=== PATIENT | male | born 1980 | race African-American/Black ===

== ENCOUNTER 2018-11-28 18:00 | Outpatient (CLI) | payer OTHER | END 2018-11-28 18:01 | disposition home or self-care (01) | LOC: SLEEPLAB 18:00 | PROVIDERS: ATTEND Family Medicine | DX: G47.33 Obstructive sleep apnea (adult) (pediatric) (principal); E66.9 Obesity, unspecified; R53.83 Other fatigue; R09.89 Other specified symptoms and signs involving the circulatory and respiratory systems; R51 Headache; R06.83 Snoring; R35.1 Nocturia; Z68.42 Body mass index [BMI] 45.0-49.9, adult | CPT/HCPCS: 95806 ==

== ENCOUNTER 2020-01-12 11:19 | Outpatient (CLI) | payer OTHER ==
--- NOTE | 2020-01-12 11:45 | RAD ---
XR Chest Pa Lat STANDARD HISTORY: Covid 19 positive over a month ago. Other viral pneumonia COMPARISON: 11/07/2016 FINDINGS: The heart size is normal. The aorta is tortuous The lungs are well expanded without focal a reas of consolidation, pneumothorax or pleural effusions. IMPRESSION: No radiographic evidence of acute cardiopulmonary process.
== END 2020-01-12 11:20 | disposition home or self-care (01) ==
LOC: BICRAD 11:19
PROVIDERS: ATTEND Physician Assistant
DX: U07.1 COVID-19 (principal)
CPT/HCPCS: 71046

== ENCOUNTER 2022-02-23 11:29 | Outpatient (CLI) | payer BC, OTHER ==
[2022-02-23 13:02] LABS: #Basophils 0.1 10x3/uL (0.0-0.2); #Eosinphils 0.2 10x3/uL (0.0-0.5); #Monocytes 0.6 10x3/uL (0.0-1.1); #Neutrophils 3.3 10x3/uL (1.5-8.4); %Basophils 0.8 % (0.0-2.0); %Eosinophils 2.4 % (0.0-6.0); %Lymphocytes 37.5 % (18.0-47.0); %Monocytes 9.1 % (0.0-10.0); %Neutrophils 49.6 % (40.0-75.0); Hemoglobin 15.1 g/dL (13.5-17.5); Mean Corpuscular HGB CONC 32.3 g/dL (32.0-36.0); Mean Corpuscular Hemoglobin 26.9 pg (27.0-33.0); Mean Corpuscular Volume 83.1 fl (81.2-95.1); Mean Platelet Volume 10.2 fl (7.4-10.4); Platelet Count 263 10x3/uL (150-450); RBC Distribution Width 13.2 % (11.5-14.5); Red Blood Cell (RBC) Count 5.62 10x6/uL (4.32-5.72); White Blood Cell (WBC) Count 6.6 10x3/uL (3.5-10.5)
[2022-02-23 13:15] LABS: Anion Gap 14 mmol/L (10-20); BUN (Urea Nitrogen) 14 mg/dL (8.9-20.6); Calc. Creatinine Clearance 0 mL/min (70-130); Calcium 8.7 mg/dL (7.8-10.44); Carbon Dioxide 23 mmol/L (22-29); Chloride 105 mmol/L (98-107); Estimated GFR 85; Glucose 96 mg/dL (70-105); Potassium 3.9 mmol/L (3.5-5.1); Sodium 138 mmol/L (136-145)
== END 2022-02-23 11:30 | disposition home or self-care (01) ==
LOC: LABBT 11:29
PROVIDERS: ATTEND Orthopaedic Surgery
DX: Z01.818 Encounter for other preprocedural examination (principal); S43.401A Unspecified sprain of right shoulder joint, initial encounter; S46.111A Strain of muscle, fascia and tendon of long head of biceps, right arm, initial encounter; M75.101 Unspecified rotator cuff tear or rupture of right shoulder, not specified as traumatic
CPT/HCPCS: 80048; 85025; 93005; 93010

== ENCOUNTER 2022-02-26 05:37 | Day surgery (SDC) | payer OTHER ==
[2022-02-24 16:28] VITALS: BMI 50.1
[2022-02-26] MEDS ORDERED: Bupivacaine/Epinephrine 0.25% 30 ML VIAL ONE (06:24)
[2022-02-26] MEDS ORDERED: fentaNYL PF 100 MCG/2 ML SYRINGE ONE (06:35)
[2022-02-26] MEDS ORDERED: HYDROmorphone 0.5 MG/0.5 ML SYRINGE ONE ×2 (06:35)
[2022-02-26] MEDS ORDERED: Midazolam HCl 2 mg/2 ml Vial ONE (06:57)
[2022-02-26] MEDS ORDERED: CEFAZOLIN 2 GM VIAL ONE (06:59)
[2022-02-26] MEDS ORDERED: Sodium Chloride 0.9% 100 ML ONE (06:59)
[2022-02-26] MEDS ORDERED: Ropivacaine 0.5% HCl/PF (150 MG/30 ML VIAL) ONE (07:00)
[2022-02-26] MEDS ORDERED: Lidocaine 1% MPF 2 ML VIAL ONE (07:00)
[2022-02-26] MEDS ORDERED: Dexamethasone 20 MG/5 ML VIAL ONE (07:25)
[2022-02-26] MEDS ORDERED: PROPOFOL 200 MG/20 ML VIAL ONE (07:25)
[2022-02-26] MEDS ORDERED: Rocuronium Bromide 10 MG/ML (10ML VIAL) ONE (07:25)
[2022-02-26] MEDS ORDERED: Phenylephrine 10 MG/ML VIAL ONE (07:40)
[2022-02-26] MEDS ORDERED: HYDROcodone/Acetaminophen 5/325 mg Tablet PO PRN (08:30)
[2022-02-26] MEDS ORDERED: traMADol HCl 50 MG TAB PO PRN ×2 (08:30)
[2022-02-26] MEDS ORDERED: Promethazine HCl 25 MG/ML VIAL IM PRN (08:30)
[2022-02-26] MEDS ORDERED: Ondansetron PF 4 MG/2 ML Vial IVP PRN (08:30)
[2022-02-26] MEDS ORDERED: Zolpidem Tartrate 5 MG TAB PO PRN (08:30)
[2022-02-26] MEDS ORDERED: Ketorolac Tromethamine 30 MG/ML VIAL IVP PRN (08:30)
[2022-02-26] MEDS ORDERED: Ropivacaine 0.2% 550 ML 550 ML NERVE BLCK SCH (08:30)
== END 2022-02-26 12:51 | disposition home or self-care (01) ==
LOC: SDC 05:37
PROVIDERS: ATTEND Orthopaedic Surgery
PROC: 0LM14ZZ Reattachment of Right Shoulder Tendon, Percutaneous Endoscopic Approach (ICD-10-PCS; principal; 2022-02-26)
DX: M75.121 Complete rotator cuff tear or rupture of right shoulder, not specified as traumatic (principal); S46.111A Strain of muscle, fascia and tendon of long head of biceps, right arm, initial encounter; S43.431A Superior glenoid labrum lesion of right shoulder, initial encounter; E11.9 Type 2 diabetes mellitus without complications; Z86.16 Personal history of COVID-19; Z79.85 Long-term (current) use of injectable non-insulin antidiabetic drugs; Z91.041 Radiographic dye allergy status; X50.9XXA Other and unspecified overexertion or strenuous movements or postures, initial encounter; Y99.0 Civilian activity done for income or pay
CPT/HCPCS: 36416; A4306; C1713; J1100; J1170; J2250; J2370; J2704; J2795; J3490; J7620

== ENCOUNTER 2023-03-05 10:29 | Outpatient (CLI) | payer OTHER | END 2023-03-05 10:30 | disposition home or self-care (01) | LOC: DTY/OP 10:29 | PROVIDERS: ATTEND Surgery | DX: E66.01 Morbid (severe) obesity due to excess calories (principal) | CPT/HCPCS: 97802 ==

== ENCOUNTER 2023-04-30 07:30 | Inpatient (IN) | payer BC ==
[2023-04-30 08:33] VITALS: BMI 50.3
[2023-05-18] MEDS ORDERED: EPINEPHrine 1 MG/ML VIAL ONE (07:01)
[2023-05-18] MEDS ORDERED: Bupivacaine 0.25% HCL 30 ML VIAL ONE (07:02)
[2023-05-18] MEDS ORDERED: Propofol 500 MG/50 ML VIAL ONE (07:06)
[2023-05-18] MEDS ORDERED: Dexamethasone 20 MG/5 ML VIAL ONE ×2 (07:12→08:40)
[2023-05-18] MEDS ORDERED: fentaNYL PF 100 MCG/2 ML SYRINGE ONE ×2 (07:12→08:40)
[2023-05-18] MEDS ORDERED: PROPOFOL 20 ML ONE (07:12)
[2023-05-18] MEDS ORDERED: Albuterol HFA (OR) 200 PUFF INH ONE ×2 (07:12→08:40)
[2023-05-18] MEDS ORDERED: Lidocaine 1% PF 5 ML VIAL ONE ×2 (07:12→08:40)
[2023-05-18] MEDS ORDERED: Ondansetron PF 4 MG/2 ML Vial ONE ×2 (07:12→08:40)
[2023-05-18] MEDS ORDERED: Rocuronium Bromide 10 MG/ML (10ML VIAL) ONE ×2 (07:13→08:40)
[2023-05-18] MEDS ORDERED: Ketamine In 0.9 % NaCl 50 MG/5 ML SYRINGE ONE ×2 (07:14→08:40)
[2023-05-18] MEDS ORDERED: SUGAMMADEX SODIUM 200 MG/2 ML VIAL ONE ×4 (07:16→08:40)
[2023-05-18] MEDS ORDERED: CEFAZOLIN 2 GM VIAL ONE (07:30)
[2023-05-18] MEDS ORDERED: Sodium Chloride 0.9% 100 ML ONE (07:30)
[2023-05-18] MEDS ORDERED: ePHEDrine Sulfate 50 MG/10 ML VIAL ONE ×2 (08:02→08:40)
[2023-05-18] MEDS ORDERED: PHENYLEPHRINE-NS 100 MCG/ML 10 ML SYRINGE ONE ×2 (08:07→08:40)
[2023-05-18] MEDS ORDERED: Ondansetron PF 4 MG/2 ML Vial IVP PRN ×2 (08:40→09:27)
[2023-05-18] MEDS ORDERED: diphenhydrAMINE 25 MG CAP PO PRN (08:40)
[2023-05-18] MEDS ORDERED: diphenhydrAMINE 50 MG/ML VIAL IVP PRN ×2 (08:40→09:27)
[2023-05-18] MEDS ORDERED: Promethazine HCl 25 MG/ML VIAL IM PRN ×3 (08:40→09:27)
[2023-05-18] MEDS ORDERED: Ondansetron HCl/PF 4 MG/2 ML Vial IVP PRN (08:40)
[2023-05-18] MEDS ORDERED: diphenhydrAMINE 50 MG/ML VIAL IM PRN (08:40)
[2023-05-18] MEDS ORDERED: Naloxone HCl 0.4 mg/ml Vial IV PRN (08:40)
[2023-05-18] MEDS ORDERED: PROPOFOL 0 ML ONE (08:40)
[2023-05-18] MEDS ORDERED: FENTANYL 500 MCG/10 ML VIAL 2,000 MCG in Sodium Chloride 0.9% 60 ML IV PRN (08:40)
[2023-05-18] MEDS ORDERED: Communication Order-Pharmacy FS SCH (08:45)
[2023-05-18] MEDS ORDERED: Glucagon 1 MG/ML KIT IM PRN (09:27)
[2023-05-18] MEDS ORDERED: HumaLOG 300 UNITS/3 ML VIAL SC PRN (09:27)
[2023-05-18] MEDS ORDERED: Dextrose 50% Abboject 50 ML SYRINGE SLOW IVP PRN (09:27)
[2023-05-18] MEDS ORDERED: Dextrose 5% in Water 1,000 ML IV PRN (09:27)
[2023-05-18] MEDS ORDERED: hydrALAZINE 20 MG/ML VIAL SLOW IVP PRN (09:27)
[2023-05-18] MEDS ORDERED: Ipratropium/Albuterol 3 ML NEB NEB PRN (09:27)
[2023-05-18] MEDS ORDERED: Ketorolac Tromethamine 30 MG (1 mL) VIAL IVP SCH (19:00)
[2023-05-18] MEDS: Sodium Chloride 0.9% 1,000 ML IV SCH ×2 (20:48)
[2023-05-19 05:10] LABS: #Monocytes 1.2 thou/uL (0.11-0.59); #Neutrophils 8.3 thou/uL (1.40-6.50); %Basophils 0.3 % (0.0-1.0); %Eosinophils 0.1 % (0.0-10.0); %Lymphocytes 17.8 % (21.0-51.0); %Neutrophils 71.4 % (42.0-75.0); Hemoglobin 14.2 g/dL (14.0-18.0); Mean Corpuscular HGB CONC 32.3 g/dL (32.0-36.0); Mean Corpuscular Hemoglobin 27.8 pg (27.0-31.0); Mean Corpuscular Volume 86.3 fl (78.0-98.0); Platelet Count 248 10x3/uL (130-400); RBC Distribution Width 13.3 % (11.5-14.5); White Blood Cell (WBC) Count 11.6 10x3/uL (4.8-10.8)
[2023-05-19 06:04] LABS: Anion Gap 10 mmol/L (10-20); BUN (Urea Nitrogen) 9 mg/dL (8.9-20.6); Calc. Creatinine Clearance 237 mL/min (70-130); Calcium 8.7 mg/dL (7.8-10.44); Carbon Dioxide 26 mmol/L (22-29); Chloride 104 mmol/L (98-107); Estimated GFR 95; Glucose 99 mg/dL (70-105); Potassium 3.9 mmol/L (3.5-5.1); Sodium 136 mmol/L (136-145)
[2023-05-19 08:02] VITALS: TEMP 97.8
[2023-05-19] MEDS ORDERED: Pantoprazole 40 MG VIAL IVP SCH (09:00)
[2023-05-19] MEDS ORDERED: Enoxaparin 40 MG (0.4 mL) SYRINGE SC SCH (09:00)
[2023-05-19] MEDS ORDERED: Hydrocodone-Acetamin 15 ML UDCUP PO PRN (10:16)
[2023-05-19 12:04] VITALS: BP 132/84
== END 2023-05-19 14:45 | disposition home or self-care (01) | DRG 621 ==
LOC: SURG A 05-18 06:15 → SJJU 05-18 17:01
PROVIDERS: ADMIT Surgery; ATTEND Surgery
PROC: 0DB64Z3 Excision of Stomach, Percutaneous Endoscopic Approach, Vertical (ICD-10-PCS; principal; 2023-05-18)
PROC: 8E0W4CZ Robotic Assisted Procedure of Trunk Region, Percutaneous Endoscopic Approach (ICD-10-PCS; 2023-05-18)
PROC: 3E033XZ Introduction of Vasopressor into Peripheral Vein, Percutaneous Approach (ICD-10-PCS; 2023-05-18)
DX: E66.01 Morbid (severe) obesity due to excess calories (principal); Z68.43 Body mass index [BMI] 50.0-59.9, adult; E11.69 Type 2 diabetes mellitus with other specified complication; G47.33 Obstructive sleep apnea (adult) (pediatric); I10 Essential (primary) hypertension; Z98.890 Other specified postprocedural states; Z11.52 Encounter for screening for COVID-19
CPT/HCPCS: 36415; 36416; 80048; 85025; 88307; 88342; 94760; C9113; J0171; J1100; J1200; J1650; J1885; J2405; J2704; J3490; J7050; S0020